=== PATIENT | female | born 1990 | race African-American/Black ===

== ENCOUNTER 2021-09-11 18:16 | Emergency (ER) | payer OTHER ==
[2021-09-11] MEDS ORDERED: ONDANSETRON 4 MG/2 ML VIAL ONE (20:19)
[2021-09-11 20:20] LABS: Urine Blood Trace-intact (Negative); Urine Glucose Negative (Negative); Urine Protein Negative (Negative); Urine Specific Gravity 1.025 (1.005-1.030)
[2021-09-11] MEDS ORDERED: FAMOTIDINE 20 MG/2 ML VIAL IV ONE (20:20)
[2021-09-11 20:32] LABS: Absolute Lymphocytes (CBC) 2.3 K/uL (0.7-4.9); Basophils % 0.7 % (0-1.3); Hematocrit 33.3 % (36.0-45.0); Lymphocytes % 30.3 % (15.3-44.8); RBC Red Blood Cell Count 3.81 M/uL (3.86-4.86)
[2021-09-11 20:32] LABS: Urine Specific Gravity/Preg 1.025 (1.005-1.030)
[2021-09-11 20:53] LABS: ALT/SGPT 13 U/L (12-78); AST/SGOT 8 U/L (15-37); Albumin 3.7 g/dL (3.4-5.0); Alkaline Phosphatase 53 U/L (45-117); BUN Blood Urea Nitrogen 16 mg/dL (7-18); Bicarbonate 29 mmol/L (21-32); Bilirubin Direct < 0.1 mg/dL (0-0.2); Bilirubin Total 0.2 mg/dL (0.2-1.0); Glucose Level 91 mg/dL (74-106); Lipase 74 U/L (73-393); Potassium 3.7 mmol/L (3.5-5.1); Protein, Total 8.2 g/dL (6.4-8.2); Sodium Level 142 mmol/L (136-145)
--- NOTE | 2021-09-11 21:37 | RAD REPORT ---
EXAM DESCRIPTION: US - Abdomen Exam Limited - 09/11/2021 9:22 pm CLINICAL HISTORY: upper abdomen pain Abdominal pain COMPARISON: No comparisons FINDINGS: The gallbladder demonstrates no gallstones. No pericholecystic fluid or gallbladder wall t hickening. The common bile duct is normal measuring 3 mm. The liver demonstrates no findings of intrahepatic biliary dilatation. IMPRESSION: Unremarkable examination.
[2021-09-11] MEDS ORDERED: CEFTRIAXONE 1000 MG/VIAL ONE (21:51)
--- NOTE | 2021-09-11 22:02 | EDPHYS ---
Physician Documentation [facility] Name: Lizzeth Krishnamurthy Age: 30 yrs Sex: Female : 1990 Arrival Date: 09/11/2021 Time: 18:20 Bed 16 Private MD: ED Physician Sowmya Salomon HPI: 09/11 20:15 This 30 yrs old Black Female presents to ER via Ambulatory with complaints of Abdominal cp Pain. 20:15 The patient presents with abdominal pain in the upper abdomen. Onset: The cp symptoms/episode began/occurred today. Associated signs and symptoms: Pertinent negatives: anorexia, chest pain, constipation, diarrhea, dysuria, fever, headache, vomiting. The symptoms are described as constant. The patient has experienced a previous episode, approximately 4 weeks ago. Patient reports pain started today after eating. 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 - Social history:: Smoking status: Patient denies any tobacco usage or history of. ROS: 20:20 Constitutional: Negative for body aches, chills, fever, poor PO intake. cp 20:20 Eyes: Negative for injury, pain, redness, and discharge. cp 20:20 ENT: Negative for ear pain, sore throat, difficulty swallowing, difficulty handling secretions. 20:20 Cardiovascular: Negative for chest pain, palpitations. 20:20 Respiratory: Negative for cough, shortness of breath, wheezing. 20:20 Abdomen/GI: Positive for abdominal pain, of the right upper quadrant and left upper quadrant, Negative for vomiting, diarrhea, constipation, anorexia. 20:20 Back: Negative for radiated pain. 20:20 Skin: Negative for cellulitis, rash. 20:20 Neuro: Negative for altered mental status, headache, weakness. 20:20 All other systems are negative. Exam: 20:25 Constitutional: The patient appears in no acute distress, alert, awake, non-toxic, well cp developed, well nourished. 20:25 Head/Face: Normocephalic, atraumatic. cp 20:25 Eyes: Periorbital structures: appear normal, Conjunctiva: normal, no exudate, no injection, Sclera: no appreciated abnormality, Lids and lashes: appear normal, bilaterally. 20:25 ENT: External ear(s): are unremarkable, Nose: is normal, Mouth: Lips: moist, Oral mucosa: moist, Posterior pharynx: Airway: no evidence of obstruction, patent. 20:25 Chest/axilla: Inspection: normal. 20:25 Cardiovascular: Rate: normal, Rhythm: regular. 20:25 Respiratory: the patient does not display signs of respiratory distress, Respirations: normal, no use of accessory muscles, no retractions, labored breathing, is not present, Breath sounds: are clear throughout, no decreased breath sounds, no stridor, no wheezing. 20:25 Abdomen/GI: Inspection: abdomen appears normal, Bowel sounds: active, all quadrants, Palpation: soft, in all quadrants, mild abdominal tenderness, in the right upper quadrant and left upper quadrant, rebound tenderness, is not appreciated, involuntary guarding, is not appreciated. 20:25 Back: CVA tenderness, is absent. Vital Signs: 19:13 BP 124 / 90; Pulse 81; Resp 18; Temp 99.4; Pulse Ox 100% ; jh5 20:28 BP 129 / 86; Pulse 76; Resp 18; Pulse Ox 100% on R/A; Pain 2/10; ld1 MDM: 19:58 Patient medically screened. cp 21:00 Differential diagnosis: cholecystitis, Cholelithiasis, pancreatitis, Peptic Ulcer cp Disease, Perf. Duodenal Ulcer, Perf. Gastric Ulcer, Pyelonephritis, Ureterolithiasis, urinary tract infection. 22:00 Data reviewed: vital signs, nurses notes, lab test result(s), radiologic studies, cp ultrasound. 22:00 Counseling: I had a detailed discussion with the patient and/or guardian regarding: the cp historical points, exam findings, and any diagnostic results supporting the discharge/admit diagnosis, lab results, radiology results, the need for outpatient follow up, a family practitioner, to return to the emergency department if symptoms worsen or persist or if there are any questions or concerns that arise at home. Response to treatment: the patient's symptoms have mildly improved after treatment, and as a result, I will discharge patient. Special discussion: Based on the patient's Hx, exam, and Dx evaluation, there is no indication for emergent surgery or inpatient Tx. It is understood by the patient/guardian that if the Sx's persist or worsen they need to return immediately for re-evaluation. 09/11 20:08 Order name: Basic Metabolic Panel 09/11 20:08 Order name: CBC with Diff 09/11 20:08 Order name: Hepatic Function; Complete Time: 21:23 09/11 21:23 Interpretation: Normal except: AST 8; GLOB 4.5; A/G 0.8. 09/11 20:08 Order name: Lipase; Complete Time: 21:23 09/11 20:09 Order name: Basic Metabolic Panel; Complete Time: 21:23 EDMS 09/11 21:23 Interpretation: Normal except: CL 109. 09/11 20:09 Order name: CBC with Automated Diff; Complete Time: 21:23 EDMS 09/11 21:23 Interpretation: Normal except: RBC 3.81; HGB 10.5; HCT 33.3; MCHC 31.6. 09/11 20:08 Order name: US Abdomen Limited; Complete Time: 21:58 09/11 20:20 Order name: Urine Dipstick-Ancillary; Complete Time: 21:23 EDMS 09/11 20:21 Order name: Urine --Ancillary (enter results); Complete Time: 21:23 tt3 09/11 20:08 Order name: IV Saline Lock; Complete Time: 20:12 09/11 20:08 Order name: Labs collected and sent; Complete Time: 20:12 09/11 20:08 Order name: Urine Dipstick-Ancillary (obtain specimen); Complete Time: 20:21 09/11 20:08 Order name: Urine Test (obtain specimen); Complete Time: 20:21 09/11 20:08 Order name: NPO; Complete Time: 20:12 09/11 21:25 Order name: PO challenge; Complete Time: 21:50 cp Administered Medications: 20:21 Drug: Zofran (Ondansetron) 4 mg Route: IVP; Site: left antecubital; ld1 20:25 Follow up: Response: No adverse reaction ld1 20:21 Drug: Pepcid (famotidine) 20 mg Route: IVP; Site: left antecubital; ld1 20:25 Follow up: Response: No adverse reaction ld1 21:54 Drug: Rocephin (cefTRIAXone) 1 grams Route: IV; Rate: calculated rate; Site: left ld1 antecubital; 21:55 Follow up: Response: No adverse reaction ld1 Disposition: 09/12 05:49 Co-signature as Attending Physician, Sowmya Salomon MD I agree with the assessment and sp3 plan of care. Disposition Summary: 09/11/21 22:01 Discharge Ordered Location: Home cp Problem: new cp Symptoms: have improved cp Condition: Stable cp Diagnosis - Upper abdominal pain, unspecified cp - UTI/ Urinary tract infection, site not specified cp Followup: cp - With: Private Physician - When: 2 - 3 days - Reason: Recheck today's complaints Discharge Instructions: - Discharge Summary Sheet cp - Abdominal Pain, Adult cp - Urinary Tract Infection, Adult cp Forms: - Medication Reconciliation Form cp - Thank You Letter cp - Antibiotic Education cp - Prescription Opioid Use cp Prescriptions: - Pepcid 20 mg Oral Tablet - take 1 tablet by ORAL route every 12 hours for 10 days; 20 tablet; Refills: 0, cp Product Selection Permitted - Zofran 4 mg Oral Tablet - take 1 tablet by ORAL route every 12 hours As needed; 20 tablet; Refills: 0, cp Product Selection Permitted - Macrobid 100 mg Oral Capsule - take 1 capsule by ORAL route every 12 hours for 7 days; 14 capsule; Refills: 0, cp Product Selection Permitted Signatures: Dispatcher [employer] Roldan Hart PA PA cp Freda Palomino, RN RN ld1 Sowmya Salomon MD MD sp3 Liss Soto RN RN jh5
--- NOTE | 2021-09-11 22:02 | ER ---
Nurse's Notes [facility] Name: Lizzeth Krishnamurthy Age: 30 yrs Sex: Female : 1990 Arrival Date: 09/11/2021 Time: 18:20 Bed 16 Private MD: Diagnosis: Upper abdominal pain, unspecified;UTI/ Urinary tract infection, site not specified Presentation: 09/11 19:13 Chief complaint: Patient states: upper abdominal pain; epigastric. initially started 4 jh5 weeks, went away, now it's back. Describes tight/sore. Denies injury. Coronavirus screen: Vaccine status: Patient reports receiving the 2nd dose of the covid vaccine. Date June 2021 Client indicates they have traveled out of the [place] in the last 14 days. Client traveled to: June 2021; [place]. Ebola Screen: Patient negative for fever greater than or equal to 101.5 degrees Fahrenheit, and additional compatible Ebola Virus Disease symptoms Patient denies exposure to infectious person. No symptoms or risks identified at this time. Initial Sepsis Screen: Does the patient meet any 2 criteria? No. Patient's initial sepsis screen is negative. Initial Sepsis Screen: Does the patient have a suspected source of infection? No. Patient's initial sepsis screen is negative. Risk Assessment: Do you want to hurt yourself or someone else? Patient reports no desire to harm self or others. Onset of symptoms. 19:13 Method Of Arrival: [facility] 19:13 Acuity: NILESH 3 5 Triage Assessment: 19:17 General: Appears in no apparent distress. comfortable, well groomed. General: [facility] is calm, cooperative, appropriate for age. Pain: Complains of pain in epigastric area. Neuro: No deficits noted. Cardiovascular: No deficits noted. Respiratory: No deficits noted. GI: Reports upper abdominal pain, nausea. 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 - Social history:: Smoking status: Patient denies any tobacco usage or history of. Screenin:29 Abuse screen: Denies threats or abuse. Denies injuries from another. Nutritional jh5 screening: No deficits noted. Tuberculosis screening: No symptoms or risk factors identified. Fall Risk None identified. Assessment: 19:29 GI: Bowel sounds present X 4 quads. jh5 20:28 Reassessment: Patient appears in no apparent distress at this time. Patient is alert, ld1 oriented x 3, equal unlabored respirations, skin warm/dry/pink. Patient states feeling better. GI: Abd is soft Abd is non tender X 4 quads. Vital Signs: 19:13 BP 124 / 90; Pulse 81; Resp 18; Temp 99.4; Pulse Ox 100% ; jh5 20:28 BP 129 / 86; Pulse 76; Resp 18; Pulse Ox 100% on R/A; Pain 2/10; ld1 ED Course: 18:20 Patient arrived in ED. mr 19:16 Triage completed. jh5 19:29 Arm band placed on right wrist. jh5 19:52 Freda Palomino, ABHISHEK is Primary Nurse. ld1 19:57 Roldan Castaneda PA is PHCP. cp 19:57 Sowmya Salomon MD is Attending Physician. cp 21:22 US Abdomen Limited In Process Unspecified. EDMS 22:19 No provider procedures requiring assistance completed. Inserted saline lock: 20 gauge ld1 in left antecubital area, using aseptic technique. Blood collected. 22:20 IV discontinued, intact, bleeding controlled, No redness/swelling at site. ld1 Administered Medications: 20:21 Drug: Zofran (Ondansetron) 4 mg Route: IVP; Site: left antecubital; ld1 20:25 Follow up: Response: No adverse reaction ld1 20:21 Drug: Pepcid (famotidine) 20 mg Route: IVP; Site: left antecubital; ld1 20:25 Follow up: Response: No adverse reaction ld1 21:54 Drug: Rocephin (cefTRIAXone) 1 grams Route: IV; Rate: calculated rate; Site: left ld1 antecubital; 21:55 Follow up: Response: No adverse reaction ld1 Outcome: 22:01 Discharge ordered by . cp 22:19 Discharged to home ambulatory. ld1 22:19 Condition: stable 22:19 Discharge instructions given to patient, Instructed on discharge instructions, follow up and referral plans. medication usage, Demonstrated understanding of instructions, follow-up care, medications, Prescriptions given X 3. 22:20 Patient left the ED. ld1 Signatures: Dispatcher [employer] TEDND JacquesHortensia mr Roldan Castaneda, Freda Magallon cp RN RN ld1 Liss Soto RN RN jh5
[2021-09-11 22:47] VITALS: TEMP 99.4; O2SAT 100
[2021-09-11 22:48] VITALS: BP 129/86
== END 2021-09-11 22:20 | disposition home or self-care (01) ==
LOC: ER 18:16
DX: N39.0 Urinary tract infection, site not specified (principal); R10.10 Upper abdominal pain, unspecified
CPT/HCPCS: 85025; 80048; 36415; 81025; 80076; 81003; 83690; 76705; 96375; 96374; 99284; J2405